=== PATIENT | male | born 1980 | race Caucasian/White ===

== ENCOUNTER 2016-09-11 15:43 | Emergency (ER) | payer OTHER ==
[2016-09-11 16:08] VITALS: BP 140/86
--- NOTE | 2016-09-11 16:41 | UC ---
Upper Extremity HPI - HPI Summary HPI Summary: 36 YEAR OLD MALE WITH COMPLAINTS OF 2 WEEKS OF LEFT SHOULDER PAIN FOLLOWING A FALL ONTO AN ICY SIDEWALK. THE LEFT SHOULDER HAS BEEN PAINFUL AND ACHING SINCE THAT TIME. HE IS LEFT HAND DOMINANT AND UNABLE TO SLEEP ON HIS LEFT SIDE DUE TO PAIN. WHILE TRYING TO PUSH HIMSELF OUT OF HIS CHAIR WITH HIS LEFT ELBOW HE HEARD A NOISE AND NOW IS HAVING MILD ELBOW PAIN - History of Current Complaint Chief Complaint: UCUpperExtremity Stated Complaint: SHOULDER PAIN Time Seen by Provider: 09/11/16 16:28 Hx Obtained From: Patient ?: No Onset/Duration: Sudden Onset, Lasting Weeks - 2, Still Present Severity Initially: Severe Severity Currently: Moderate Pain Scale Used: 0-10 Numeric - 7 - TEMPORARY RELIEF WITH TRAMADOL Character: Aching Aggravating Factor(s): Movement, Extension Alleviating Factor(s): Other: - TRAMADOL Associated Signs And Symptoms: Negative: Swelling, Redness, Bruising, Fever, Weakness, Numbness/Tingling Related History: Dominant Hand Left - Risk Factors Non-Orthopedic Risk Factor: Negative DVT Risk Factors: Smoking Septic Arthritis Risk Factor: Negative Compartment Syndrome Risk Factors: Pain - Allergies/Home Medications Allergies/Adverse Reactions: Allergies Allergy/AdvReac Type Severity Reaction Status Date / Time BEES Allergy Rash Uncoded 09/11/16 16:08 Home Medications: Home Medications NK [No Home Medications Reported] 09/11/16 [History Confirmed 09/11/16] PMH/Surg Hx/FS Hx/Imm Hx Previously Healthy: Yes Endocrine History Of: Denies: Diabetes, Thyroid Disease Cardiovascular History Of: Denies: Cardiac Disorders, Hypertension, Pacemaker/ICD Respiratory History Of: Reports: Asthma Denies: COPD GI/ History Of: Denies: Ulcer - Surgical History Surgical History: Yes Surgery Procedure, Year, and Place: TONSILLECTOMY. CHOLECYSTECTOMY - Family History Known Family History: Positive: Cardiac Disease - FATHER, Hypertension, Diabetes - Social History Lives: With Family Alcohol Use: None Substance Use Type: None Smoking Status (MU): Current Every Day Smoker Type: Cigarettes Amount Used/How Often: 5 CIG/DAY Length of Time of Smoking/Using Tobacco: 2002 Have You Smoked in the Last Year: Yes Household Exposure Type: Cigarettes Cessation Counseling: Patient Advised to Stop - HE IS NOT INTERESTED IN QUITING Review of Systems Constitutional: Negative Skin: Negative Eyes: Negative ENT: Negative Respiratory: Negative Cardiovascular: Negative Gastrointestinal: Negative Genitourinary: Negative Motor: Decreased ROM - LEFT SHOULDER Musculoskeletal: Arthralgia - LEFT SHOULDER AND ELBOW Neurological: Negative Psychological: Negative All Other Systems Reviewed And Are Negative: Yes Physical Exam Triage Information Reviewed: Yes Appearance: Well-Appearing, Pain Distress - HOLDING LEFT ARM WITH HIS RIGHT ARM , Obese - MORBIDLY Vital Signs: Initial Vital Signs Temp 98.1 F 09/11/16 16:05 Pulse 89 09/11/16 16:05 Resp 18 09/11/16 16:05 BP 140/86 09/11/16 16:05 Pulse Ox 99 09/11/16 16:05 Vital Signs Reviewed: Yes Eyes: Positive: Conjunctiva Clear. Negative: Discharge ENT: Positive: Hearing grossly normal. 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 FULL ROM OF LEFT WRIST AND ELBOW. NO ERYTHEMA, SWELLING OR BRUISING NOTED AT LEFT ELBOW OR SHOULDER. LEFT UPPER EXTREMITY PINK AND WARM WITH GOOD RADIAL AND ULNAR PULSES. GOOD SENSATION TO LIGHT TOUCH, No Edema Neurological: Positive: Alert, Muscle Tone Normal Psychological: Positive: Age Appropriate Behavior - PLEASANT AND COOPERATIVE Skin: Negative: rashes Upper Extremity Course/Dx - Course Course Of Treatment: XRAY OF LEFT SHOULDER - NEGATIVE. PT DECLINED TORADOL FOR PAIN. FOLLOW UP WITH PRIMARY CARE DOCTOR - Differential Dx/Diagnosis Differential Diagnosis/HQI/PQRI: Contusion, Fracture (Closed) Provider Diagnoses: LEFT SHOULDER SPRAIN Discharge - Discharge Plan Condition: Stable Disposition: HOME Patient Education Materials: Shoulder Pain (ED), Ice Pack Application (ED) Referrals: Zoë Newton MD [Primary Care Provider] - 1 Week
--- NOTE | 2016-09-11 17:08 | RAD ---
Indication: Left shoulder pain. 3 views of left shoulder demonstrates no fracture. No other bone or joint abnormality is noted. IMPRESSION: No fracture of the left shoulder is noted.
== END 2016-09-11 17:05 | disposition home or self-care (01) ==
LOC: UCEAST 15:43
DX: S43.402A Unspecified sprain of left shoulder joint, initial encounter (principal); W00.0XXA Fall on same level due to ice and snow, initial encounter; Y93.9 Activity, unspecified; Y92.480 Sidewalk as the place of occurrence of the external cause; M25.522 Pain in left elbow; F17.210 Nicotine dependence, cigarettes, uncomplicated
CPT/HCPCS: 99212; G0463

== ENCOUNTER 2017-05-11 17:49 | Emergency (ER) | payer OTHER ==
[2017-05-11 18:08] VITALS: BP 135/77
--- NOTE | 2017-05-11 18:21 | UC ---
Skin Complaint HPI - HPI Summary HPI Summary: Pt presents with c/o sudden oset of red cicular non pruritic dry scaly circles on right lateral lower leg. Pt has known history of eczema. - History of Current Complaint Chief Complaint: UCSkin Time Seen by Provider: 05/11/17 18:08 Stated Complaint: RIGHT LEG SKIN COMPLAINT Hx Obtained From: Patient Onset/Duration: Sudden Onset Skin Exposure Onset/Duration: Hours Ago Timing: Constant Onset Severity: Mild Current Severity: Mild Location: Discrete - right lowr leg lateral aspect Character: Redness Aggravating: Nothing Alleviating: Unknown Associated Signs & Symptoms: Positive: Rash - Allergy/Home Medications Allergies/Adverse Reactions: Allergies Allergy/AdvReac Type Severity Reaction Status Date / Time Morphine Allergy Severe "it will Verified 05/11/17 18:09 kill me" Mupirocin [From Bactroban] Allergy Mild local skin Verified 05/11/17 18:09 reaction BEES Allergy Rash Uncoded 05/11/17 18:09 Review of Systems Constitutional: Negative Skin: Rash Eyes: Negative ENT: Negative Respiratory: Negative Cardiovascular: Negative Gastrointestinal: Negative Genitourinary: Negative Motor: Negative Neurovascular: Negative Musculoskeletal: Negative Neurological: Negative Psychological: Negative Is Patient Immunocompromised?: No All Other Systems Reviewed And Are Negative: Yes PMH/Surg Hx/FS Hx/Imm Hx Previously Healthy: Yes - Surgical History Surgical History: Yes Surgery Procedure, Year, and Place: TONSILS. GALLBLADDER - Family History Known Family History: Positive: Cardiac Disease - FATHER, Hypertension, Diabetes - Social History Lives: With Family Alcohol Use: None Substance Use Type: None Smoking Status (MU): Light Every Day Tobacco Smoker Type: Cigarettes Amount Used/How Often: 5 CIG/DAY Length of Time of Smoking/Using Tobacco: 2002 Have You Smoked in the Last Year: Yes Household Exposure Type: Cigarettes Physical Exam Triage Information Reviewed: Yes Appearance: Well-Appearing, Obese Vital Signs: Initial Vital Signs Temp 98.3 F 05/11/17 18:03 Pulse 99 05/11/17 18:03 Resp 19 05/11/17 18:03 BP 135/77 05/11/17 18:03 Pulse Ox 99 05/11/17 18:03 Vital Signs Reviewed: Yes Eye Exam: Normal ENT Exam: Normal Neck exam: Normal Respiratory Exam: Normal Cardiovascular Exam: Normal Musculoskeletal Exam: Normal Neurological Exam: Normal Psychological Exam: Normal Skin Exam: Other - right lateral lower leg erythematous, circular areas, blanchable, dry skin, multiple areas, ~ 6 + Course/Dx - Course Course Of Treatment: I discussed with the pt the need to follow up with his PCP or return to clinic as needed. I offered referral to chief recordist. - Differential Diagnoses - Skin Complaint Differential Diagnoses: Cellulitis, Eczema, Other - psoriasis - Diagnoses Provider Diagnoses: eczema right lower lateral leg Discharge - Discharge Plan Condition: Stable Disposition: HOME Prescriptions: Hydrocortisone 1% CREAM* [Hytone Cream 1%*] 1 applic TOPICAL Q8H #1 tube Patient Education Materials: Eczema (ED) Referrals: Zoë Newton MD [Primary Care Provider] - If Needed (Please follow up with your PCP or return to clinic as needed.WE have provided a referral to a chief recordist foryou to use as needed. ) Cori Keller [Medical Doctor] -
== END 2017-05-11 18:37 | disposition home or self-care (01) ==
LOC: UCCORT 17:49
DX: L30.9 Dermatitis, unspecified (principal); E66.9 Obesity, unspecified; Z90.49 Acquired absence of other specified parts of digestive tract; Z88.5 Allergy status to narcotic agent; Z91.030 Bee allergy status; F17.210 Nicotine dependence, cigarettes, uncomplicated
CPT/HCPCS: 99212; G0463

== ENCOUNTER 2017-08-21 16:44 | Emergency (ER) | payer OTHER ==
[2017-08-21 17:05] VITALS: BP 134/84
--- OUTSIDE RECORDS SUMMARY | 2017-08-21 17:05 | XMS REPORT ---
:1980 External Reference #:[id number] Author Organization [facility], Address [address] [place] [address] Phone [phone] Care Team Providers Name Role Phone Gigi Evans DO Primary Care Physician Unavailable Payers Type Date Identification Numbers Payment Provider Subscriber Commercial Policy Number: [id number] [place] Managed Medicaid Marcelo Evans PayID: [id number] [address] [place] [address] Problems Description No Information Social History Type Date Description Comments Occupation Disabled ETOH Use Denies alcohol use Smoking Patient is a current smoker, smokes every day Allergies, Adverse Reactions, Alerts Date Description Reaction Status Severity Comments 05/29/2017 Morphine active 04/01/2017 NKDA inactive Medications Medication Date Status Form Strength Qnty SIG Indications Ordering Provider Cyclobenzaprine 07/29/ Active Tablets 10mg 60tabs take one M54.5 Gigi HCL 2017 tablet Cristina, every 8 DO hours as needed for back pain. Triamcinolone 05/29/ Active Cream 0.1% 30gm apply to L30.9 Gigi Acetonide 2017 affected [facility], area twice DO a day as needed Naproxen 04/23/ Active Tablets 500mg 60tabs take one S80.02xA Gigi 2017 tablet by Cristina, mouth DO twice a day with food as needed. Keflex 05/29/ Hx Capsules 500mg 40caps take one L30.9 Gigi 2017 - tablet Cristina, 06/09/ every 6 DO 2017 hours for 10 days. No Active 04/01/ Hx Unknown Medications 2016 - 2016 Vital Signs Date Vital Result Comment 08/01/2017 Weight 360.00 lb Weight in kg's 163.296 BMI (Body Mass Index) 56.4 kg/m2 BP Systolic 138 mmHg BP Diastolic 86 mmHg Respiratory Rate 18 /min Height 67 inches 5'7" Height in cm's 170.2 cm 07/29/2017 Weight 360.25 lb Weight in kg's 163.409 BMI (Body Mass Index) 56.4 kg/m2 BP Systolic 136 mmHg BP Diastolic 76 mmHg Heart Rate 84 /min Respiratory Rate 18 /min Height 67 inches 5'7" Height in cm's 170.2 cm O2 % BldC Oximetry 96 % 06/10/2017 Weight 366.00 lb Weight in kg's 166.018 BMI (Body Mass Index) 57.3 kg/m2 BP Systolic 134 mmHg BP Diastolic 78 mmHg Heart Rate 90 /min Respiratory Rate 26 /min Height 67 inches 5'7" Height in cm's 170.2 cm O2 % BldC Oximetry 98 % 05/29/2017 Weight 365.00 lb Weight in kg's 165.564 BMI (Body Mass Index) 57.2 kg/m2 BP Systolic 140 mmHg BP Diastolic 86 mmHg Heart Rate 87 /min Respiratory Rate 30 /min Height 67 inches 5'7" Height in cm's 170.2 cm O2 % BldC Oximetry 97 % 05/13/2017 Weight 364.00 lb Weight in kg's 165.110 BMI (Body Mass Index) 57.0 kg/m2 BP Systolic 132 mmHg BP Diastolic 88 mmHg Heart Rate 81 /min Respiratory Rate 17 /min Height 67 inches 5'7" Height in cm's 170.2 cm O2 % BldC Oximetry 99 % 04/23/2017 Weight 364.12 lb Weight in kg's 165.167 BMI (Body Mass Index) 57.0 kg/m2 BP Systolic 136 mmHg BP Diastolic 84 mmHg Heart Rate 77 /min Respiratory Rate 18 /min Height 67 inches 5'7" Height in cm's 170.2 cm O2 % BldC Oximetry 97 % 04/16/2017 Weight 362.12 lb Weight in kg's 164.260 BMI (Body Mass Index) 56.7 kg/m2 BP Systolic 130 mmHg BP Diastolic 84 mmHg Heart Rate 71 /min Respiratory Rate 18 /min Height 67 inches 5'7" Height in cm's 170.2 cm O2 % BldC Oximetry 99 % 04/01/2017 Weight 363.25 lb Weight in kg's 164.770 BMI (Body Mass Index) 56.9 kg/m2 BP Systolic 136 mmHg BP Diastolic 90 mmHg Heart Rate 78 /min Respiratory Rate 18 /min Height 67 inches 5'7" Height in cm's 170.2 cm O2 % BldC Oximetry 98 % Results Test Date Test Result H/L Range Note Comprehensive Panel 04/04/2017 Sodium 137 mmol/L 136-145 Potassium 4.2 mmol/L 3.5-5.2 Chloride 105 mmol/L 100-108 Co2 24 mmol/L 21-32 Glucose 88 mg/dL 70-100 BUN 8 mg/dL 7-21 Creatinine 0.8 mg/dL 0.6-1.3 1 Calcium 9.1 mg/dL 8.5-10.8 GFR >60 T Bili 0.8 mg/dL 0.0-1.2 T Protein 7.7 gm/dL 6.4-8.2 Albumin 3.9 gm/dL 3.4-4.8 Alk Phos 139 U/L 40-150 Alt (SGPT) 24 U/L 0-55 Ast (Sgot) 20 U/L 5-37 CBC W/No Diff 04/04/2017 WBC 7.1 K/uL 4.8-10.8 RBC 5.21 M/uL 4.60-6.20 Hemoglobin 15.4 gm/dL 13.5-18.0 Hematocrit 44.0 % 41.0-53.0 MCV 84.5 fL 80.0-100.0 MCHC 35.0 % 30.0-36.5 MCH 29.5 pg 27.0-34.0 RDW 13.3 % 11.0-15.0 Platelet 268 K/uL 130-450 MPV 8.0 fL 6.0-12.0 Thyroid Profile(T3+T4+TSH) 04/04/2017 TSH 1.84 uIU/mL 0.34-4.82 T4 4.2 g/dL Low 4.7-13.0 T3 Uptake Units 0.86 TBI 0.69-1.41 Lipid Panel 04/04/2017 Cholesterol 145 mg/dL 120-200 Triglycerides 82 mg/dL 0-149 HDL Cholesterol 32 mg/dL Low 40-60 Chol/HDL Ratio 4.5 <=4.9 2 LDL Direct 104 mg/dL High 0-99 VLDL Calculated 16 1 Normal Kidney Function or Mild Disease - GFR >OR=60 Chronic Kidney Disease - GFR 15-59 Renal Failure - GFR < 15 GFR not calculated on patients under 18 years of age. 2 Cholesterol/HDL Ratio Interpretation Risk : 1/2 Avg Avg 2x Avg 3x Avg Male : 3.43 4.97 9.50 23.99 Female : 3.27 4.44 7.05 11.04 Procedures Date CPT Code Description Status 06/30/2017 24296 Polysomnography; Sleep Staging 4 Or More Add'l Para Completed Attend [facility] Encounters Type Date Location Provider CPT E/M Dx Office Visit 08/01/2017 2:00p [facility] [place] [address] M54.5 M51.36 Office Visit 07/29/2017 10:30a [facility] [place] [address] M54.5 Office Visit 06/10/2017 2:15p [facility] [place] [address] E66.01 Z68.43 Office Visit 05/29/2017 10:30a [facility] [place] [address] L30.9 Office Visit 05/13/2017 9:00a [facility] [place] [address] M25.562 Z68.43 Office Visit 04/23/2017 1:15p [facility] [place] [address] M25.562 S80.02xA G47.33 Z68.43 Office Visit 04/16/2017 1:45p [facility] [place] [address] G56.02 Office Visit 04/01/2017 11:00a [facility] [place] [address] F33.1 Z68.43 Plan of Care Future Appointment(s):08/28/2017 10:00 am - Gigi Evans DO at [facility]08/01/2017 - WADE Correa54.5 Low back painM51.36 Other intervertebral disc degeneration, lumbar regionNew Xrays:MRI Spine Lumbar W/O ContrastComments:We will check an MRI of the lumbar spine for further assessment. He will likely need physical therapy, but I want to wait to see what the results of this is first.
--- OUTSIDE RECORDS SUMMARY | 2017-08-21 17:05 | XMS REPORT ---
:1980 External Reference #:[id number] Author Organization [facility], Address [address] [place] [address] Phone [phone] Care Team Providers Name Role Phone Gigi Evans DO Primary Care Physician Unavailable Payers Type Date Identification Numbers Payment Provider Subscriber Commercial Policy Number: [id number] [place] Managed Medicaid Marcelo Evans PayID: [id number] [address] [place] [address] Problems Description No Information Social History Type [...] apply to L30.9 Gigi Acetonide 2017 affected [facility], area twice DO a day as needed Naproxen 04/23/ Active Tablets 500mg 60tabs take one S80.02xA Gigi 2017 tablet by Cristina, mouth DO twice a day with food as needed. Keflex 05/29/ Hx Capsules 500mg 40caps take one L30.9 Gigi 2017 - tablet Cristina, 06/09/ every 6 DO 2017 hours for 10 days. No Active Hx Unknown Medications 2016 - 2016 Vital Signs Date Vital Result Comment 07/29/2017 Weight 360.25 lb Weight in kg's [...] Procedures Date CPT Code Description Status 06/30/2017 45927 Polysomnography; Sleep Staging 4 Or More Add'l Para Completed Attend [facility] Encounters Type Date Location Provider CPT E/M Dx Office Visit 07/29/2017 10:30a [facility] [place] [address] M54.5 Office Visit 06/10/2017 2:15p [facility] [place] [address] E66.01 Z68.43 Office Visit 05/29/2017 10:30a [facility] [place] [address] L30.9 Office Visit 05/13/2017 9:00a [facility] [place] [address] M25.562 Z68.43 Office Visit 04/23/2017 1:15p [facility] [place] [address] M25.562 S80.02xA G47.33 Z68.43 Office Visit 04/16/2017 1:45p [facility] [place] [address] G56.02 Office Visit 04/01/2017 11:00a [facility] [place] [address] F33.1 Z68.43 Plan of Care Future Appointment(s):08/28/2017 10:00 am - Gigi Evans DO at [facility]07/29/2017 - Gigi Evans DOM54.5 Low back painNew Medication: Cyclobenzaprine HCL 10 mgNew Xrays:Spine, Lumbosacral, 2 Or 3 ViewsFollow up:4 weeks
--- NOTE | 2017-08-21 17:06 | UC ---
Upper Extremity HPI - HPI Summary HPI Summary: 37 YEAR OLD MALE PRESENTS WITH COMPLAINS OF RIGHT SHOULDER PAIN WITH NO TRAUMA. - History of Current Complaint Chief Complaint: UCUpperExtremity Stated Complaint: RT SHOULDER Time Seen by Provider: 08/21/17 17:06 Hx Obtained From: Patient Onset/Duration: Sudden Onset Severity Initially: Moderate Severity Currently: Moderate Pain Scale Used: 0-10 Numeric - 5 Character: Sharp Aggravating Factor(s): Movement - Allergies/Home Medications Allergies/Adverse Reactions: Allergies Allergy/AdvReac Type Severity Reaction Status Date / Time Morphine Allergy Severe "it will Verified 08/21/17 17:04 kill me" Mupirocin [From Bactroban] Allergy Mild local skin Verified 08/21/17 17:04 reaction BEES Allergy Rash Uncoded 08/21/17 17:04 Home Medications: Home Medications Cyclobenzaprine TAB* [Flexeril 10 MG TAB*] 10 mg PO BID 08/21/17 [History Confirmed 08/21/17] PMH/Surg Hx/FS Hx/Imm Hx Previously Healthy: Yes - Surgical History Surgical History: Yes Surgery Procedure, Year, and Place: TONSILS. GALLBLADDER - Family History Known Family History: Positive: Cardiac Disease - FATHER, Hypertension, Diabetes - Social History Alcohol Use: None Substance Use Type: None Smoking Status (MU): Light Every Day Tobacco Smoker Type: Cigarettes Amount Used/How Often: 5 CIG/DAY Length of Time of Smoking/Using Tobacco: 2003 Have You Smoked in the Last Year: Yes Household Exposure Type: Cigarettes Review of Systems Constitutional: Negative Skin: Negative Eyes: Negative ENT: Negative Respiratory: Negative Cardiovascular: Negative Gastrointestinal: Negative Genitourinary: Negative Motor: Negative Neurovascular: Negative Musculoskeletal: Decreased ROM, Myalgia Neurological: Negative Psychological: Negative All Other Systems Reviewed And Are Negative: Yes Physical Exam Triage Information Reviewed: Yes Vital Signs: Initial Vital Signs Temp 36.6 C 08/21/17 17:00 Pulse 88 08/21/17 17:00 Resp 18 08/21/17 17:00 BP 134/84 08/21/17 17:00 Pulse Ox 97 08/21/17 17:00 Vital Signs Reviewed: Yes Eye Exam: Normal ENT Exam: Normal Dental Exam: Normal Neck exam: Normal Neck: Positive: 1 Respiratory Exam: Normal Cardiovascular Exam: Normal Abdominal Exam: Normal Musculoskeletal: Positive: Other: - RIGHT SHOULDER PAIN Neurological Exam: Normal Psychological Exam: Normal Skin Exam: Normal Upper Extremity Course/Dx - Differential Dx/Diagnosis Provider Diagnoses: RIGHT SHOULDER PAIN/SPRAIN Discharge - Discharge Plan Condition: Stable Disposition: HOME Prescriptions: Ibuprofen TAB* [Motrin TAB* 800 MG] 800 mg PO Q6H #30 tab Methocarbamol TAB* [Robaxin 500 MG TAB*] 500 mg PO TID PRN #30 tab PRN Reason: Spasms Patient Education Materials: Shoulder Sprain (ED) Referrals: Gigi Evans DO [Primary Care Provider] - Joe Quintana MD [Medical Doctor] - Darrion Harris [Physical Therapist] -
--- NOTE | 2017-08-21 17:36 | RAD ---
INDICATION: Atraumatic right shoulder pain COMPARISON: Right shoulder March 29, 2014 TECHNIQUE: Routine frontal, Y and axial views were obtained. FINDINGS: The bony structures, joint spaces, and soft tissues are normal for age. IMPRESSION: NEGATIVE EXAMINATION.
== END 2017-08-21 17:55 | disposition home or self-care (01) ==
LOC: UCCORT 16:44
DX: S43.401A Unspecified sprain of right shoulder joint, initial encounter (principal); X58.XXXA Exposure to other specified factors, initial encounter; Y93.9 Activity, unspecified; Y92.9 Unspecified place or not applicable; Y99.9 Unspecified external cause status; Z72.0 Tobacco use
CPT/HCPCS: 99213; G0463

== ENCOUNTER 2017-11-22 13:05 | Emergency (ER) | payer OTHER ==
--- OUTSIDE RECORDS SUMMARY | 2017-11-22 13:14 | XMS REPORT | Continuity of Care Document ---
:[address] [facility] Care Team Providers Name Role Phone KARYN UMAÑA Admitting Physician KARYN UMAÑA Attending Physician LISA MILLER Primary Care Physician Hospital Admission Diagnosis Code Admission Diagnosis Date [id number] Examination for accident Social History Element Code Description Smoking Start Date End Date Description Status Code System Smoking Status 791130755875257 Current some day SNOMED-CT smoker Problems Code Code System Problem Name Start Date End Date Status 83283750 SNOMED-CT Depressive disorder 03/25/2017 Active 912901284 SNOMED-CT Asthma Unknown Active 582111033 SNOMED-CT Gastroesophageal reflux disease Unknown Active Medications RxNorm Medication Dose Route Instructions Indications Start End Status Date Date Ventolin HFA 2 puff Inhalation inhaled every Active Inhaler 90 4 hours as mcg/actuation needed. 434784 Naproxen 500 500 oral orally every No MG Oral Tablet milligram 12 hours (10 Longer days) Active (administer with food or milk) 1875790 Triamcinolone 1 Topical topically 3 05/30/ No Acetonide 1 applicatio times per day 2017 Longer MG/ML Topical n (7 days) Active Cream Allergies Code Code Allergy Type Reaction Severity Start End Date Status System Substance Date 652194 RXNorm Bee Pollen Drug Unknown Active allergy 7052 RXNorm Morphine Drug Rash Unknown Active allergy RXNorm No Known Drug Drug Unknown 10/09/19 Inactive Allergies allergy 6 18 Results Radiology Results Order: [id number] HIP ONLY UNILATERAL 2-3 VIEWS LEFTExam Completion Date:10/09/2017 18:4710/09/2017 6:57 PM HIP ONLY UNILATERAL 2 -3 VIEWS LEFTORDERING CLINICAL INFORMATION: -- HISTORY OF FALLING ADDITIONAL CLINICAL INFORMATION: None. COMPARISON: None. PROCEDURE: 2 views of the left hipare obtained. FINDINGS/IMPRESSION: No acute fracture or dislocation. The joint spaces are unremarkable. END REPORTElectronically signed By: Leland Saucedo M.D.Read By: LELAND CABRERAate: 10/09/201718:58 Vital Signs Vitals Value Date Body Temperature 97.8 F 10/09/2017 Pulse Rate 98 (beats)/min 10/09/2017 Respiratory Rate 18 (breaths)/min 10/09/2017 O2% BldC Oximetry 99 % 10/09/2017 BP Systolic 147 mmHg 10/09/2017 BP Diastolic 94 mmHg 10/09/2017 Height 67 in 10/09/2017 Weight Measured 348.33 lbs 10/09/2017 BSA (Body Surface Area) 2.50156 m2 10/09/2017 BMI (Body Mass Index) 54.6 kg/m2 10/09/2017 Advance Directives *RHIO - CONSENT IS YES Directive Type Effective Date [employer] Notes Supporting Document Name Address Phone No Directive Type 04/04/2017 08:56 Not Specified Not Specified Not Specified None No specified Family History Family History Unknown Plan of Care No data in the system Procedures No data in the system Encounters Date Code Diagnosis Status (ICD10) - [id number] CONTUSION LEFT HIP INITIAL ENC Active Immunizations No data in the system Functional Status No data in the system Hospital Discharge Instructions No data in the system
--- NOTE | 2017-11-22 13:20 | UC ---
Upper Extremity HPI - HPI Summary HPI Summary: Pt presents with left elbow pain for 1 week. He is left hand dominant. He tells me that he was shoveling snow last weekend and felt a "pop" in his left elbow. Has been painful since that time. Decreased ROM due to pain. Has been taking ibuprofen with little relief. Denies numbness or tingling. - History of Current Complaint Stated Complaint: LEFT ARM INJURY Time Seen by Provider: 11/22/17 13:19 Hx Obtained From: Patient Onset/Duration: Sudden Onset Severity Initially: Moderate Severity Currently: Moderate Pain Intensity: 7 Pain Scale Used: 0-10 Numeric Character: Sharp, Stiffness Aggravating Factor(s): Movement, Lifting - Allergies/Home Medications Allergies/Adverse Reactions: Allergies Allergy/AdvReac Type Severity Reaction Status Date / Time MS Morphine [Morphine] Allergy Severe "it will Verified 11/22/17 13:34 kill me" MS Mupirocin [From Bactroban] Allergy Mild local skin Verified 11/22/17 13:34 reaction BEES Allergy Rash Uncoded 08/21/17 17:04 Home Medications: Home Medications Ibuprofen TAB* [Motrin TAB* 800 MG] 800 mg PO Q6H 11/22/17 [History Confirmed ] PMH/Surg Hx/FS Hx/Imm Hx Previously Healthy: Yes - Surgical History Surgical History: Yes Surgery Procedure, Year, and Place: TONSILS. GALLBLADDER - Family History Known Family History: Positive: Cardiac Disease - FATHER, Hypertension, Diabetes - Social History Lives: With Family Alcohol Use: None Substance Use Type: None Smoking Status (MU): Light Every Day Tobacco Smoker Type: Cigarettes Amount Used/How Often: 5 CIG/DAY Length of Time of Smoking/Using Tobacco: 2002 Have You Smoked in the Last Year: Yes Household Exposure Type: Cigarettes Review of Systems Constitutional: Negative Skin: Negative Respiratory: Negative Cardiovascular: Negative Gastrointestinal: Negative Neurovascular: Negative Musculoskeletal: Decreased ROM - Left elbow, Other: - Left elbow pain Neurological: Negative Psychological: Negative All Other Systems Reviewed And Are Negative: Yes Physical Exam - Summary Physical Exam Summary: GENERAL: Obese. No pain distress. SKIN: No rashes, sores, ulcers, masses, lesions. NECK: Supple. Nontender. No lymphadenopathy. CHEST: CTAB. No r/r/w. No accessory muscle use. Breathing comfortably and in no distress. CV: RRR. Without m/r/g. Pulses intact radial and ulnar. MSK: Left elbow: TTP over lateral epicondyle. Able to supinate, but with pain. Middle finger extension against resistance causes pain in lateral epicondyle. No edema or obvious bony deformities. NEURO: Alert. Sensations intact hand and all fingers. PSYCH: Age appropriate behavior. Triage Information Reviewed: Yes Upper Extremity Course/Dx - Course Course Of Treatment: XR: IMPRESSION: NO ACUTE OSSEOUS INJURY. IF SYMPTOMS PERSIST, RECOMMEND REPEAT IMAGING. Suspect lateral epicondylitis. Advised rest , ice, and meloxicam. Use sling as needed. - Differential Dx/Diagnosis Provider Diagnoses: lateral epicondylitis left Discharge - Sign-Out/Discharge Documenting (check all that apply): Discharge - Discharge Plan Condition: Stable Disposition: HOME Prescriptions: Meloxicam 7.5 mg PO BID PRN #14 tab PRN Reason: Pain Patient Education Materials: Tennis Elbow (ED) Referrals: Gigi Evans DO [Primary Care Provider] - Additional Instructions: If you develop a fever, shortness of breath, chest pain, new or worsening symptoms - please call your PCP or go to the ED. Your blood pressure was high at todays visit. Please see your primary provider within 4 weeks for recheck and re-evaluation. - Billing Disposition and Condition Condition: STABLE Disposition: HOME
[2017-11-22 13:34] VITALS: BP 137/81
--- NOTE | 2017-11-22 13:49 | RAD ---
HISTORY: Left elbow pain COMPARISONS: None VIEWS: 4, Frontal, lateral, and oblique views of the left elbow FINDINGS: BONE DENSITY: Normal. BONES: There is no displaced fracture. JOINTS: There is no arthropathy. There is no posterior supracondylar fat pad to suggest a joint effusion. ALIGNMENT: There is no dislocation. SOFT TISSUES: Unremarkable. OTHER FINDINGS: None. IMPRESSION: NO ACUTE OSSEOUS INJURY. IF SYMPTOMS PERSIST, RECOMMEND REPEAT IMAGING.
== END 2017-11-22 14:08 | disposition home or self-care (01) ==
LOC: UCCORT 13:05
DX: M77.12 Lateral epicondylitis, left elbow (principal); X50.0XXA Overexertion from strenuous movement or load, initial encounter; Y93.H1 Activity, digging, shoveling and raking; Y92.008 Other place in unspecified non-institutional (private) residence as the place of occurrence of the external cause; Z88.5 Allergy status to narcotic agent; Z88.1 Allergy status to other antibiotic agents; Z91.030 Bee allergy status; F17.210 Nicotine dependence, cigarettes, uncomplicated
CPT/HCPCS: 99213; G0463

== ENCOUNTER 2018-02-09 15:27 | Emergency (ER) | payer OTHER ==
--- OUTSIDE RECORDS SUMMARY | 2018-02-09 15:51 | XMS REPORT | Continuity of Care Document ---
:1980 Author Organization [facility] Care Team Providers Name Role Phone LISA MILLER Admitting Physician LISA MILLER Attending Physician LISA MILLER Primary Care Physician Allergies and Intolerances Code Code System Allergy Type Reaction Severity Start End Date Status Substance Date 7052 RXNorm Morphine Drug Rash Unknown Active allergy (disorder) 499214 RXNorm Bee Pollen Drug Unknown Active allergy (disorder) Medications RxNorm Medication Dose Route Instructions Start Date End Date Status Ventolin HFA 2 puff Inhalation inhaled every 4 Active Inhaler 90 hours as needed. mcg/actuation Problems Code Code System Problem Name Start Date End Date Status 16082048 SNOMED-CT Depressive disorder 03/25/2017 Active 801693622 SNOMED-CT Gastroesophageal reflux disease U Active 255961996 SNOMED-CT Asthma U Active Procedures No data in the system Results Radiology Results Order: MRI LUMBAR W/O CONTRASTExam Completion Date:01/01/2018 08: 8:59 AM MR LUMBOSACRAL SPINE WITHOUT CONTRAST ORDERING CLINICAL INFORMATION: other intervertebral disc degeneration, lumbar region, -- OTHER INTERVERTEBRAL DISC DEGENERATION, LUMBAR REGION ADDITIONAL CLINICAL INFORMATION: None. TECHNIQUE: Multiplanar multi-sequenceMR imaging of the lumbosacral spine was performed without intravenous contrast. COMPARISON: Lumbar spine plain films from 07/29/2017. FINDINGS: Five lumbar vertebral segments are designated. Lumbar lordosis is present. The vertebral bodies are normal in height. The vertebrae are normal in alignment. Age-appropriate fatty marrow changes are observed. The conus medullaris is normal in morphology and terminates at L1. Loss of normal signal intensity and height noted at the L3/L4 , L4/L5 and L5/S1 intervertebral discs. Schmorl's nodule is noted within the inferior endplate of L3. Individuallevels: T12-L1: No disc herniation, spinal stenosis or foraminal narrowing. L1-L2: No disc herniation, spinal stenosis or foraminal narrowing. L2-L3: No disc herniation, spinal stenosis or foraminal narrowing. L3-L4: Diffuse disc bulge noted with no significant neuroforaminal narrowing. No spinal canal narrowing. L4-L5: Diffuse disc bulge noted with bilateral moderate lateral recess and neuroforaminal narrowing. No spinal canal narrowing. L5-S1: No disc herniation, spinal stenosis or foraminal narrowing. OTHER: None IMPRESSION: Discogenic degeneration noted within the lower lumbar intervertebral discs. An associated diffuse disc bulge and bilateral moderate lateral recess/neural foraminal narrowing noted at L4/L5. END OF REPORT Electronically signed By: Tara Preston Read By: TARA FRANCO Date: 01/01/2018 12:12 Social History Code Code System Social History Description Dates Observed Observation 663726268925654 SNOMED CT Current Smoking Current some day Status smoker UNK AdministrativeGender Sex Assigned At Unknown Vital Signs No data in the system Goals Section No data in the system Health Concerns No data in the systemEncounter Diagnosis Date Code Code System Diagnosis Status M51.36 ICD10 OTH IV DISC DEGEN LUMBAR REGION Active Advance Directives *RHIO - CONSENT IS YES Directive Type Effective Date Quality Assurance Coordinator Notes Supporting Document Name Address Phone No Directive Type 04/04/2017 8:56:05 Not Specified Not Specified Not Specified None No specified AM Family History Family History Unknown Functional Status No data in the system Immunizations No data in the system Medical Equipment No data in the system Mental Status No data in the system Assessment and Plan Assessments No data in the systemPlan Of Treatment No data in the systemPending Tests No data in the system Hospital Discharge Instructions No data in the system Reason for Visit Reason for Visit MRI VERIFY INFO
[2018-02-09 16:02] VITALS: BP 126/75
--- NOTE | 2018-02-09 16:15 | UC ---
Knee Pain HPI - HPI Summary HPI Summary: Pt c/o left knee pain that began this morning. Pt denies injury or previous surgery to knee. - History of Current Complaint Chief Complaint: UCLowerExtremity Stated Complaint: LEFT KNEE PAIN Time Seen by Provider: 02/09/18 15:49 Hx Obtained From: Patient Onset/Duration: Sudden Onset, Lasting Hours Severity Initially: Mild Severity Currently: Moderate Pain Intensity: 7 Character: Dull, Aching, Stiffness Aggravating Factor(s): Movement, Weight Bearing, Prolonged Standing Alleviating Factor(s): Rest, Position Associated Signs And Symptoms: Positive: Negative Able to Bear Weight: Yes - Risk Factors Septic Arthritis Risk Factor: Negative Gout Risk Factor: Male, Obesity - Allergies/Home Medications Allergies/Adverse Reactions: Allergies Allergy/AdvReac Type Severity Reaction Status Date / Time mupirocin [From Bactroban] Allergy Rash Verified 02/09/18 16:03 BEES Allergy Rash Uncoded 08/21/17 17:04 PMH/Surg Hx/FS Hx/Imm Hx Previously Healthy: Yes - Surgical History Surgical History: Yes Surgery Procedure, Year, and Place: TONSILS. GALLBLADDER - Family History Known Family History: Positive: Cardiac Disease - FATHER, Hypertension, Diabetes - Social History Lives: With Family Alcohol Use: None Substance Use Type: None Smoking Status (MU): Light Every Day Tobacco Smoker Type: Cigarettes Amount Used/How Often: 5 CIG/DAY Length of Time of Smoking/Using Tobacco: 2003 Have You Smoked in the Last Year: Yes Household Exposure Type: Cigarettes Review of Systems Constitutional: Negative Skin: Negative Eyes: Negative ENT: Negative Respiratory: Negative Cardiovascular: Negative Gastrointestinal: Negative Genitourinary: Negative Motor: Negative Neurovascular: Negative Musculoskeletal: Arthralgia, Myalgia Neurological: Negative Psychological: Negative Is Patient Immunocompromised?: No All Other Systems Reviewed And Are Negative: Yes Physical Exam Triage Information Reviewed: Yes Appearance: Obese Vital Signs: Initial Vital Signs Temp 98.4 F 02/09/18 15:54 Pulse 94 02/09/18 15:54 Resp 16 02/09/18 15:54 BP 126/75 02/09/18 15:54 Pulse Ox 99 02/09/18 15:54 Vital Signs Reviewed: Yes Eye Exam: Normal ENT Exam: Normal Dental Exam: Normal Neck exam: Normal Respiratory: Positive: No respiratory distress Musculoskeletal: Positive: Strength Intact, ROM Intact, No Edema, Other: - c/o tenderness left lateral posterior knee, no swelling, erythema or red streaking Neurological Exam: Normal Psychological Exam: Normal Skin Exam: Normal Knee Pain Course/Dx - Differential Dx/Diagnosis Differential Diagnosis/HQI/PQRI: DVT, Sprain, Strain Provider Diagnoses: left knee strain Discharge - Sign-Out/Discharge Documenting (check all that apply): Discharge/Admit/Transfer - Discharge Plan Condition: Stable Disposition: HOME Patient Education Materials: Knee Pain (ED), Arthralgia (ED), R.I.C.E. Treatment (ED) Referrals: Gigi Evans DO [Primary Care Provider] - If Needed - Billing Disposition and Condition Condition: STABLE Disposition: Home
== END 2018-02-09 16:25 | disposition home or self-care (01) ==
LOC: UCCORT 15:27
DX: S86.812A Strain of other muscle(s) and tendon(s) at lower leg level, left leg, initial encounter (principal); E66.9 Obesity, unspecified; F17.210 Nicotine dependence, cigarettes, uncomplicated; X58.XXXA Exposure to other specified factors, initial encounter; Y92.9 Unspecified place or not applicable; Z91.030 Bee allergy status; Z88.1 Allergy status to other antibiotic agents
CPT/HCPCS: 99211; G0463

== ENCOUNTER 2018-03-17 20:30 | Emergency (ER) | payer OTHER ==
--- OUTSIDE RECORDS SUMMARY | 2018-03-17 20:42 | XMS REPORT ---
:1980 External Reference #:[id number] Author Organization [facility] Address [address], [address] [place] [address] Phone [phone] Care Team Providers Name Role Phone Gigi Evans DO Care Team Information Wide Load Escort Unavailable Gigi Evans DO Primary Care Physician Unavailable Payers Type Date Identification Numbers Payment Provider Subscriber Commercial Policy Number: [id number] [place] [employer] Marcelo Evans PayID: [id number] [address] [place] [address] Problems Description No Information Social History Type Date Description Comments Lives With Mother Occupation Disabled Work Status Disabled Cigarette Use current cigarette smoker ETOH Use Denies alcohol use Recreational Drug Use Denies Drug Use Daily Caffeine Current Caffeine User Allergies, Adverse Reactions, Alerts Date Description Reaction Status Severity Comments 02/19/2018 NKDA active Medications Medication Date Status Form Strength Qnty SIG Indications Ordering Provider Diclofenac Active Tablets ER 100mg 30tabs 1 by mouth Zander Sodium ER 018 24HR every day [place], with food. M.D. Stop ibuprofen and meloxicam Sertraline Active Tablets 50mg Take One Unknown HCL 000 Tablet By Mouth Every Day Ibuprofen Hx Tablets 600mg Take One Unknown 000 - Tablet By Mouth Three 018 Times A Day as Needed For Pain Meloxicam Hx Tablets 7.5mg Take One Unknown 000 - Tablet By Mouth Twice 018 A Day as Needed For Pain Vital Signs Date Vital Result Comment 02/19/2018 BP Systolic Sitting Left Arm 129 mmHg BP Diastolic Sitting Left Arm 84 mmHg Body Temperature 97.5 F Heart Rate 85 /min Respiratory Rate 18 /min Height 66 inches 5'6" Weight 317.00 lb BMI (Body Mass Index) 51.2 kg/m2 BSA (Body Surface Area) 2.43 m2 [place] body weight in kilograms 64 O2 % BldC Oximetry 95 % Results Description No Information Procedures Date CPT Code Description Status 12/24/2014 39383 EKG Interpretation And Report Only Completed 02/19/2011 08746 Stress Test Interpre And Report Only Completed 02/19/2011 75155 Stress Test Physician Super Only Completed Encounters Type Date Location Provider CPT E/M Dx Office Visit 02/19/2018 10:15a Orthopaedic Office Johana Gonzalez, [address] M25.562 [facility] M17.12 Office Visit 08/13/2012 2:05p Cardiology Office Moy Olson, [phone] M.Kang, [facility] Plan of Care Future Appointment(s):03/19/2018 9:30 am - JESSE Brantley at [facility] [place]8302/19/2018 - Johana Gonzalez, RPACM25.562 Pain in left kneeNew Therapy:Physical ZjuoqqvD82.12 Unilateral primary osteoarthritis, left kneeNew Therapy:Physical TherapyAllNew Medication:Diclofenac Sodium ER 100 mgComments:His pain is relatively mild and has been flared only for about a week. I suggested an oral anti-inflammatory. The ibuprofen and Meloxicam are not being utilized ideally. I am going to have him stop them. I faxed in a prescription for diclofenac 100 mg to be taken daily with food. I am going to have him take it regularly for the next month and see him back to see how effective it has been. I am also going to have him attend a formal physical therapy program to strengthen his knee. He can stop using the crutches and use ice as needed. He will contact the office sooner with any problems or concerns.
[2018-03-17 20:51] VITALS: BP 141/83
--- NOTE | 2018-03-17 21:07 | UC ---
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 he is c/o pain to the foot. - History of Current Complaint Chief Complaint: UCLowerExtremity Stated Complaint: LEFT FOOT INJURY Time Seen by Provider: 03/17/18 20:48 Hx Obtained From: Patient Onset/Duration: Sudden Onset Pain Intensity: 8 Aggravating Factor(s): Standing, Ambulation Able to Bear Weight: No - Allergies/Home Medications Allergies/Adverse Reactions: Allergies Allergy/AdvReac Type Severity Reaction Status Date / Time mupirocin [From Bactroban] Allergy Rash Verified 03/17/18 20:48 BEES Allergy Rash Uncoded 03/17/18 20:48 PMH/Surg Hx/FS Hx/Imm Hx Previously Healthy: Yes - Surgical History Surgical History: Yes Surgery Procedure, Year, and Place: TONSILS. GALLBLADDER - Family History Known Family History: Positive: Cardiac Disease - FATHER, Hypertension, Diabetes - Social History Occupation: Unemployed Alcohol Use: None Substance Use Type: None Smoking Status (MU): Light Every Day Tobacco Smoker Type: Cigarettes Amount Used/How Often: 5 CIG/DAY Length of Time of Smoking/Using Tobacco: 2002 Have You Smoked in the Last Year: Yes Household Exposure Type: Cigarettes - Immunization History Vaccination Up to Date: Yes Review of Systems Constitutional: Negative Skin: Negative Eyes: Negative ENT: Negative Respiratory: Negative Cardiovascular: Negative Gastrointestinal: Negative Genitourinary: Negative Motor: Negative Neurovascular: Negative Musculoskeletal: Other: - pain l foot Neurological: Negative Psychological: Negative Is Patient Immunocompromised?: No All Other Systems Reviewed And Are Negative: Yes Physical Exam Triage Information Reviewed: Yes Appearance: Well-Appearing, Obese Vital Signs: Initial Vital Signs Temp 98.2 F 03/17/18 20:49 Pulse 100 03/17/18 20:49 Resp 20 03/17/18 20:49 BP 141/83 03/17/18 20:49 Pulse Ox 98 03/17/18 20:49 Eyes: Positive: Conjunctiva Clear ENT: Positive: Normal ENT inspection Neck: Positive: Supple, Nontender Respiratory: Positive: Lungs clear, Normal breath sounds Cardiovascular: Positive: RRR, No Murmur Abdomen Description: Positive: Nontender, No Organomegaly, Soft Bowel Sounds: Positive: Present Musculoskeletal: Positive: Other: - LLE: hip, knee, ankle are atraumatic. L medial-dorsal foot with mild swelling. Tender to bases of 1st and 2nd toes. Gross s/v/m is intact. Neurological: Positive: Alert Psychological: Positive: Age Appropriate Behavior Skin Exam: Normal Diagnostics - Radiology No standard instances Radiology Interpretation Completed By: ED Physician - no fx on wet read Lower Extremity Course/Dx - Course Course Of Treatment: no fx/dislocation - Differential Dx/Diagnosis Provider Diagnoses: Contusion L foot Discharge - Sign-Out/Discharge Documenting (check all that apply): Patient Departure - Discharge Plan Condition: Stable Disposition: HOME Patient Education Materials: Foot Contusion (ED) Referrals: Gigi Evans DO [Primary Care Provider] - 5 Days Additional Instructions: splint and crutches until cleared. - Billing Disposition and Condition Condition: STABLE Disposition: Home
--- NOTE | 2018-03-18 08:03 | RAD ---
INDICATION: Left great toe pain after " kicked a tray" COMPARISON: Left foot radiograph dated May 16, 2015 TECHNIQUE: 3 views of the left foot were obtained. FINDINGS: The adequately corticated bones are properly aligned. Joint spaces appear maintained. No fracture, dislocation or focal bony abnormality is seen. IMPRESSION: NO RADIOGRAPHICALLY APPARENT FRACTURE OR DISLOCATION If the patient's symptoms persist, follow-up imaging is recommended.. R0 R0
== END 2018-03-17 21:50 | disposition home or self-care (01) ==
LOC: UCCORT 20:30
DX: S90.32XA Contusion of left foot, initial encounter (principal); W22.8XXA Striking against or struck by other objects, initial encounter; Y93.89 Activity, other specified; Y92.9 Unspecified place or not applicable; Z88.1 Allergy status to other antibiotic agents; F17.210 Nicotine dependence, cigarettes, uncomplicated
CPT/HCPCS: 99213; G0463

== ENCOUNTER 2018-04-17 16:11 | Emergency (ER) | payer OTHER ==
--- OUTSIDE RECORDS SUMMARY | 2018-04-17 16:21 | XMS REPORT | Continuity of Care Document ---
:1980 Author Organization [facility] Care Team Providers Name Role Phone LISA MILLER Primary Care Physician Allergies and Intolerances Code Code System Allergy Type Reaction Severity Start End Date Status Substance Date 7051 RXNorm Morphine Drug Rash Unknown Active allergy (disorder) 465209 RXNorm Bee Pollen Drug Unknown Active allergy (disorder) Medications RxNorm Medication Dose Route Instructions Start Date End Date Status Ventolin HFA 2 puff Inhalation inhaled every 4 Active Inhaler 90 hours as needed. mcg/actuation Problems Code Code System Problem Name Start Date End Date Status 65073575 SNOMED-CT Depressive disorder 03/25/2017 Active 336479817 SNOMED-CT Gastroesophageal reflux disease U Active 349761423 SNOMED-CT Asthma U Active Procedures No data in the system Results Radiology Results Order: FOOT COMPLETE LTExam Completion Date: 03/19/2018 21: 9:09 PM FOOT COMPLETE LT ORDERING CLINICAL INFORMATION: INJURY, UNSPECIFIED,pain inR great toe and medial aspect of L foot Kicked tray and then dropped stand on it. -- INJURY, UNSPECIFIED IMPRESSION/FINDINGS: Frontal, lateral, and oblique views. Small osseous fragment off the lateral base of the first distal phalanx compatible with fracture, age-indeterminate. Correlate with point tenderness. Otherwise no significant osseous or soft tissue abnormality. Electronically signed By: Morro Golden M.D., MBA, FACR Read By: MORRO GOLDEN Date: 03/19/2018 21:18 Social History Code Code System Social History Description Dates Observed Observation 941589190454179 SNOMED CT Current Smoking Current some day Status smoker UNK AdministrativeGender Sex Assigned At Unknown Vital Signs Code Code System Vitals Value Date 52935 LOINC Body Temperature 97.5 [degF] 03/19/2018 8865-8 LOINC Pulse Rate 88 {beats}/min 03/19/2018 9279-1 LOINC Respiratory Rate 21 /min 03/19/2018 15430-3 INC O2% BldC Oximetry 95 % 03/19/2018 8480-6 LOINC BP Systolic 148 mm[Hg] 03/19/2018 8462-4 LOINC BP Diastolic 91 mm[Hg] 03/19/2018 8302-2 LOINC Height 67 [in_i] 03/19/2018 43003-5 LOINC Weight 168 kg 03/19/2018 3140-1 LOINC Body surface area Derived from formula 2.63 m2 03/19/2018 12707-0 INC BMI (Body Mass Index) 58.1 kg/m2 03/19/2018 Goals Section No data in the system Health Concerns No data in the systemEncounter Diagnosis Date Code Code System Diagnosis Status S92.422A ICD10 DSPL FX DIST PHAL LT GT TOE INT LETTY Active Advance Directives *RHIO - CONSENT IS YES Directive Type Effective Date Transfer And Pumphouse Operator Notes Supporting Document Name Address Phone No Directive Type 04/04/2017 8:56:05 Not Specified Not Specified Not Specified None No specified AM Family History Family History Unknown Functional Status Code Functional Condition Code System Date Status Independent adls SNOMED CT 03/19/2018 Active Appears well nourished/hydrated SNOMED CT 03/19/2018 Active Immunizations No data in the system Medical Equipment No data in the system Mental Status Code Cognitive Condition Code System Date Status No acute distress SNOMED CT 03/19/2018 Active Oriented x [address] 03/19/[address] 03/19/2018 Active Assessment and Plan Assessments No data in the systemPlan Of Treatment No data in the systemPending Tests No data in the system Hospital Discharge Instructions No data in the system Reason for Visit Reason for Visit Foot Injury
--- OUTSIDE RECORDS SUMMARY | 2018-04-17 16:21 | XMS REPORT ---
:1980 External Reference #:[id number] Author Organization [facility], [place] [address] [place] [address] Phone [phone] Care Team Providers Name Role Phone Gigi Evans DO Primary Care Physician Unavailable Payers Type Date Identification Numbers Payment Provider Subscriber Commercial Policy Number: [id number] [place] [employer] Marcelo Evans PayID: [id number] [address] [place] [address] Problems Description No Information Social History Type Date Description Comments Occupation Disabled ETOH Use Denies alcohol use Smoking Patient is a current smoker, smokes every day Allergies, Adverse Reactions, Alerts Date Description Reaction Status Severity Comments 05/29/2017 Morphine active 03/27/2018 Bees active 04/01/2017 NKDA inactive Medications Medication Date Status Form Strength Qnty SIG Indications Ordering Provider Amoxicillin 03/27/ Active Capsules 500mg 30caps one J01.90 Gigi 2017 tablet by Cristina, mouth DO every 8 hours for 10 days. Ventolin HFA 09/05/ Active Aerosol 108(90Base 2units 2 puffs Giig 2017 ) mcg/Act every 4 Cristina, hours as DO needed for wheezing or asthma or if needed before exercise Cyclobenzaprine 07/29/ Active Tablets 10mg 60tabs take one M54.5 Gigi HCL 2017 tablet Cristina, every 8 DO hours as needed for back pain. Triamcinolone 05/29/ Active Cream 0.1% 30gm apply to L30.9 Gigi Acetonide 2017 affected Cristina, area DO twice a day as needed Naproxen 04/23/ Active Tablets 500mg 60tabs take one S80.02xA Gigi 2017 tablet by Cristina, mouth DO twice a day with food as needed. Keflex 05/29/ Hx Capsules 500mg 40caps take one L30.9 Gigi 2016 - tablet Cristina, 06/09/ every 6 DO 2017 hours for 10 days. No Active 04/01/ Hx Unknown Medications 2016 - 2016 Vital Signs Date Vital Result Comment 03/27/2018 Weight 370.12 lb Weight in kg's 167.889 BMI (Body Mass Index) 58.0 kg/m2 BP Systolic 122 mmHg BP Diastolic 86 mmHg Heart Rate 82 /min Body Temperature 98.1 F Respiratory Rate 18 /min Height 67 inches 5'7" Height in cm's 170.2 cm O2 % BldC Oximetry 97 % 01/23/2018 Weight 366.50 lb Weight in kg's 166.244 BMI (Body Mass Index) 57.4 kg/m2 BP Systolic 128 mmHg BP Diastolic 94 mmHg Heart Rate 78 /min Respiratory Rate 18 /min Height 67 inches 5'7" Height in cm's 170.2 cm O2 % BldC Oximetry 98 % 12/26/2017 Weight 368.25 lb Weight in kg's 167.038 BMI (Body Mass Index) 57.7 kg/m2 BP Systolic 134 mmHg BP Diastolic 88 mmHg Heart Rate 75 /min Respiratory Rate 18 /min Height 67 inches 5'7" Height in cm's 170.2 cm O2 % BldC Oximetry 97 % 11/24/2017 Weight 368.00 lb Weight in kg's 166.925 BMI (Body Mass Index) 57.6 kg/m2 BP Systolic 136 mmHg BP Diastolic 84 mmHg Heart Rate 98 /min Respiratory Rate 30 /min Height 67 inches 5'7" Height in cm's 170.2 cm O2 % BldC Oximetry 98 % 09/03/2017 Weight 360.00 lb Weight in kg's 163.296 BMI (Body Mass Index) 56.4 kg/m2 BP Systolic 134 mmHg BP Diastolic 84 mmHg Respiratory Rate 19 /min Height 67 inches 5'7" Height in cm's 170.2 cm 08/01/2017 Weight 360.00 lb Weight in kg's [...] 11.04 Procedures Date CPT Code Description Status 08/06/2017 34816 Polysomnography; Sleep Staging 4 Or More W/Cpap/Bipap Completed Attend Tech 06/30/2017 94651 Polysomnography; Sleep Staging 4 Or More Add'l Para Completed Attend Tech Encounters Type Date Location Provider CPT E/M Dx Office Visit 03/27/2018 9:15a [facility] [place] [address] J01.90 Office Visit 12/26/2017 10:00a [facility] [place] [address] M25.522 Office Visit 11/24/2017 11:15a [facility] [place] [address] M54.5 Office Visit 09/03/2017 1:45p [facility] [place] [address] G47.33 Z68.43 Office Visit 08/01/2017 2:00p [facility] [place] [address] M54.5 M51.36 Office Visit 07/29/2017 10:30a [facility] [place] [address] M54.5 Office Visit 06/10/2017 2:15p [facility] [place] [address] E66.01 Z68.43 Office Visit 05/29/2017 10:30a [facility] [place] [address] L30.9 Office Visit 05/13/2017 9:00a [facility] [place] [address] M25.562 Z68.43 Office Visit 04/23/2017 1:15p [facility] [place] [address] M25.562 S80.02xA G47.33 Z68.43 Office Visit 04/16/2017 1:45p [facility] [place] [address] G56.02 Office Visit 04/01/2017 11:00a [facility] [place] [address] F33.1 Z68.43 Plan of Care 03/27/2018 - Gigi Evans DOJ01.90 Acute sinusitis, unspecifiedNew Medication: Amoxicillin 500 mg
[2018-04-17 16:25] VITALS: BP 138/72
--- NOTE | 2018-04-17 16:44 | UC ---
Upper Extremity HPI - HPI Summary HPI Summary: Patient presents complaining of right mid bicep pain. Patient states yesterday he was lifting more than he should. Patient states he was pulling a seat out of the back of his van. Patient states progressively he's had discomfort with full extension and full flexion of his right bicep. Patient is left-hand dominant. Patient denies any weakness or paresthesias of his hand. 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 Patient states when he rests his arm pain resolves completely. Patient has not taken anything for pain. Patient without any edema. Patient without any color change. Patient without previous injury to same. Patient's medications reviewed this visit - History of Current Complaint Chief Complaint: UCUpperExtremity Stated Complaint: RT ARM INJURY Time Seen by Provider: 04/17/18 16:21 Hx Obtained From: Patient Onset/Duration: Gradual Onset Severity Currently: Moderate Pain Intensity: 8 Pain Scale Used: 0-10 Numeric - Allergies/Home Medications Allergies/Adverse Reactions: Allergies Allergy/AdvReac Type Severity Reaction Status Date / Time mupirocin [From Bactroban] Allergy Rash Verified 03/17/18 20:48 BEES Allergy Rash Uncoded 03/17/18 20:48 PMH/Surg Hx/FS Hx/Imm Hx Previously Healthy: Yes - Surgical History Surgical History: Yes Surgery Procedure, Year, and Place: TONSILS. GALLBLADDER - Family History Known Family History: Positive: Cardiac Disease - FATHER, Hypertension, Diabetes - Social History Occupation: Unemployed Lives: With Family Alcohol Use: None Substance Use Type: None Smoking Status (MU): Light Every Day Tobacco Smoker Type: Cigarettes Amount Used/How Often: 5 CIG/DAY Length of Time of Smoking/Using Tobacco: 2002 Have You Smoked in the Last Year: Yes Household Exposure Type: Cigarettes - Immunization History Vaccination Up to Date: Yes Review of Systems Constitutional: Negative Musculoskeletal: Other: - right arm All Other Systems Reviewed And Are Negative: Yes Physical Exam - Summary Physical Exam Summary: A+Ox3, no distress Eyes: Conjunctiva Clear, JULIET. EOM intact and full ENT: Hearing grossly normal TM x 2 clear, mmoist, uvula midline, no exudate, no erythema Neck: Positive: Supple Respiratory: Positive: No respiratory distress, No accessory muscle use + CTA throughout no w/r Cardiovascular: RRR nl s1, s2 no m/r CBT <2 sec 2+ radial, 2+ ulna abd soft + BS nt/nd no guarding, no distension Musculoskeletal Exam: No pain with palpation of shoulder, clavicle, wrist +flex /ext elbow, pronation/supination mild TTP mid bicep discomfort with direct palpation. Neurological: Positive: Alert, + sensation throughout +thumb up, a ok, finger spread, finger cross Psychological: Positive: Normal Response To Family Skin: Positive: no rash, no ecchymosis, no edema Triage Information Reviewed: Yes Vital Signs: Initial Vital Signs Temp 98 F 04/17/18 16:21 Pulse 90 04/17/18 16:21 Resp 20 04/17/18 16:21 BP 138/72 04/17/18 16:21 Pulse Ox 98 04/17/18 16:21 Upper Extremity Course/Dx - Course Course Of Treatment: Patient presents with right mid bicep discomfort after lifting something yesterday. Patient states pain started approximately 3 hours after the movement. Patient has not taken anything for pain. Patient's left hand dominant. Patient with good CSM. Patient with mild mid bicipital discomfort with direct palpation. Patient with full strength and range of motion. Offered patient ibuprofen here patient declined states he takes at home. Patient offers sling. Recommended take out of the sling and flex extend elbow as well as make small circles with shoulder. And an ice. Encourage movement as tolerated. Patient comfortable in agreement with plan. Return precautions discussed - Differential Dx/Diagnosis Provider Diagnoses: muscle strain Discharge - Sign-Out/Discharge Documenting (check all that apply): Patient Departure - Discharge Plan Condition: Stable Disposition: HOME Patient Education Materials: Muscle Strain (ED) Referrals: Gigi Evans, [Primary Care Provider] - Additional Instructions: -wear sling for comfort and support. relax your shoulder so the sling holds the weight of your shoulder - Take your arm outside of your sling and fully bend/stretching of elbow and makes small circles at your shoulder as demonstrated in the urgent car -apply ice (20 min at a time) every 2-3 hours for the next 2 days --Okay to alternate ibuprofen (Advil, Motrin) and Tylenol product every 3 hours for pain. Take with food. Do NOT take for more than 4-5 days. -Contact your doctor with questions or concerns - Billing Disposition and Condition Condition: STABLE Disposition: Home
== END 2018-04-17 16:49 | disposition home or self-care (01) ==
LOC: UCCORT 16:11
DX: S46.911A Strain of unspecified muscle, fascia and tendon at shoulder and upper arm level, right arm, initial encounter (principal); X50.9XXA Other and unspecified overexertion or strenuous movements or postures, initial encounter; Y92.9 Unspecified place or not applicable; F17.210 Nicotine dependence, cigarettes, uncomplicated; Z88.3 Allergy status to other anti-infective agents
CPT/HCPCS: 99212; G0463

== ENCOUNTER 2018-06-19 19:44 | Emergency (ER) | payer OTHER ==
[2018-06-19 20:22] VITALS: BP 137/83
--- NOTE | 2018-06-19 20:30 | ED ---
Lower Extremity - HPI Summary HPI Summary: 38 yr old with complaint of left knee pain. Onset yesterday when he hit the knee cap on the ball of his jeep. pain on knee cap. Hurts worse to bend. He has no other complaints. - History of Current Complaint Chief Complaint: UCLowerExtremity Stated Complaint: LEFT KNEE INJURY Time Seen by Provider: 06/19/18 20:11 Pain Intensity: 7 - Allergies/Home Medications Allergies/Adverse Reactions: Allergies Allergy/AdvReac Type Severity Reaction Status Date / Time mupirocin [From Bactroban] Allergy Rash Verified 06/19/18 20:23 BEES Allergy Rash Uncoded 03/17/18 20:48 PMH/Surg Hx/FS Hx/Imm Hx Endocrine/Hematology History: Denies: Hx Diabetes, Hx Thyroid Disease Cardiovascular History: Denies: Hx Hypertension, Hx Pacemaker/ICD Respiratory History: Reports: Hx Asthma Denies: Hx Chronic Obstructive Pulmonary Disease (COPD) GI History: Denies: Hx Ulcer History: Denies: Hx Renal Disease Sensory History: Denies: Hx Hearing Aid Psychiatric History: Reports: Hx Panic Disorder - ANXIETY - Surgical History Surgery Procedure, Year, and Place: TONSILS. GALLBLADDER Infectious Disease History: No Infectious Disease History: Denies: Hx Clostridium Difficile, Hx Hepatitis, Hx Human Immunodeficiency Virus (HIV), Hx of Known/Suspected MRSA, Hx Shingles, Hx Tuberculosis, Hx Known/ Suspected VRE, Hx Known/Suspected VRSA, History Other Infectious Disease, Traveled Outside the [place] in Last 30 Days - Family History Known Family History: Positive: Cardiac Disease - FATHER, Hypertension, Diabetes - Social History Alcohol Use: None Substance Use Type: Reports: None Smoking Status (MU): Light Every Day Tobacco Smoker Type: Cigarettes Amount Used/How Often: 5 CIG/DAY Length of Time of Smoking/Using Tobacco: 2002 Have You Smoked in the Last Year: Yes Review of Systems Constitutional: Negative Positive: Other - knee cap pain All Other Systems Reviewed And Are Negative: Yes Physical Exam Triage Information Reviewed: Yes Vital Signs On Initial Exam: Initial Vitals Temp Pulse Resp BP Pulse Ox 98.3 F 92 17 137/83 97 06/19/18 20:15 06/19/18 20:15 06/19/18 20:15 06/19/18 20:15 06/19/18 20:15 Vital Signs Reviewed: Yes Appearance: Positive: Well-Appearing, No Pain Distress Skin: Positive: Warm, Skin Color Reflects Adequate Perfusion Head/Face: Positive: Normal Head/Face Inspection Eyes: Positive: EOMI Neck: Positive: Nontender Respiratory/Lung Sounds: Positive: Clear to Auscultation, Breath Sounds Present Cardiovascular: Positive: Pulses are Symmetrical in both Upper and Lower Extremities Abdomen Description: Negative: Distended Musculoskeletal: Positive: Strength/ROM Intact, Other - tender over the left knee cap without deformity, and without effusion. He has no crepitance over the knee cap. No gross defomity. Neurological: Positive: Sensory/Motor Intact, Alert, Oriented to Person Place, Time, CN Intact II-III Psychiatric: Positive: Normal - Aleksandra Coma Scale Best Eye Response: 4 - Spontaneous Best Motor Response: 6 - Obeys Commands Best Verbal Response: 5 - Oriented Coma Scale Total: 15 Diagnostics - Vital Signs Vital Signs Temp Pulse Resp BP Pulse Ox 06/19/18 20:15 98.3 F 92 17 137/83 97 - Laboratory Lab Statement: Any lab studies that have been ordered have been reviewed, and results considered in the medical decision making process. - Radiology left knee Xray Interpretation: No Acute Changes Radiology Interpretation Completed By: ED Physician Lower Extremity Course/Dx - Course Course Of Treatment: 38 yr old with direct trauma to knee cap. - Diagnoses Provider Diagnoses: Contusion of knee, left Discharge - Sign-Out/Discharge Documenting (check all that apply): Patient Departure All imaging exams completed and their final reports reviewed: No - Discharge Plan Condition: Good Disposition: HOME Patient Education Materials: Knee Pain (ED), Hypertension (ED) Referrals: Gigi Evans DO [Primary Care Provider] - 2 Days - Billing Disposition and Condition Condition: GOOD Disposition: Home
--- NOTE | 2018-06-20 08:07 | RAD ---
HISTORY: pain patella after trauma COMPARISONS: None VIEWS: 4 , Frontal, lateral, axial, and oblique views of the left knee FINDINGS: BONE DENSITY: Normal. BONES: There is no displaced fracture. JOINTS: There is mild medial compartment joint space narrowing. There is no suprapatellar joint effusion or lipohemarthrosis. ALIGNMENT: There is no dislocation. SOFT TISSUES: Unremarkable. OTHER FINDINGS: None. IMPRESSION: NO ACUTE OSSEOUS INJURY. IF SYMPTOMS PERSIST, RECOMMEND REPEAT IMAGING. R1
--- NOTE | 2018-06-20 08:13 | UC ---
- Progress Note Progress Note: final read reviewed and normal. Course/Dx - Diagnoses Provider Diagnoses: Contusion of knee, left Discharge - Sign-Out/Discharge Documenting (check all that apply): Post-Discharge Follow Up All imaging exams completed and their final reports reviewed: Yes - Discharge Plan Condition: Good Disposition: HOME Patient Education Materials: Knee Pain (ED), Hypertension (ED) Referrals: Gigi Evans DO [Primary Care Provider] - 2 Days - Billing Disposition and Condition Condition: GOOD Disposition: Home
== END 2018-06-19 21:09 | disposition home or self-care (01) ==
LOC: UCCORT 19:44
DX: S80.02XA Contusion of left knee, initial encounter (principal); W22.8XXA Striking against or struck by other objects, initial encounter; Y92.9 Unspecified place or not applicable; R88.8 Abnormal findings in other body fluids and substances; F17.210 Nicotine dependence, cigarettes, uncomplicated
CPT/HCPCS: 99212; G0463

== ENCOUNTER 2018-11-03 19:08 | Emergency (ER) | payer OTHER ==
[2018-11-03 19:32] VITALS: BP 158/81
--- NOTE | 2018-11-03 20:24 | UC ---
UC General HPI - HPI Summary HPI Summary: 2 DAY HX RUNNY NOSE WITH COUGH AND CONGESTION. + WHEEZING. NO FEVER OR CP. HX ASTHMA - History of Current Complaint Chief Complaint: UCRespiratory Stated Complaint: COUGH/CONGESTION/FEVER Time Seen by Provider: 11/03/18 20:18 Hx Obtained From: Patient Onset/Duration: Gradual Onset Timing: Constant Pain Intensity: 0 Associated Signs & Symptoms: Positive: Cough, SOB, Wheezing. Negative: Chest Pain, Fever - Allergy/Home Medications Allergies/Adverse Reactions: Allergies Allergy/AdvReac Type Severity Reaction Status Date / Time mupirocin [From Bactroban] Allergy Rash Verified 11/03/18 19:30 BEES Allergy Rash Uncoded 11/03/18 19:30 PMH/Surg Hx/FS Hx/Imm Hx Respiratory History: Asthma - Surgical History Surgical History: Yes Surgery Procedure, Year, and Place: TONSILS. GALLBLADDER - Family History Known Family History: Positive: Cardiac Disease - FATHER, Hypertension, Diabetes - Social History Alcohol Use: None Substance Use Type: None Smoking Status (MU): Light Every Day Tobacco Smoker Type: Cigarettes Amount Used/How Often: 5 CIG/DAY Length of Time of Smoking/Using Tobacco: 2002 Have You Smoked in the Last Year: Yes Household Exposure Type: Cigarettes - Immunization History Vaccination Up to Date: Yes Review of Systems All Other Systems Reviewed And Are Negative: Yes Constitutional: Negative: Fever ENT: Positive: Sinus Congestion Respiratory: Positive: Shortness Of Breath, Cough Cardiovascular: Negative: Palpitations, Chest Pain Physical Exam Triage Information Reviewed: Yes Appearance: Well-Appearing Vital Signs: Initial Vital Signs Temp 97.8 F 11/03/18 19:28 Pulse 92 11/03/18 19:28 Resp 24 11/03/18 19:28 BP 158/81 11/03/18 19:28 Pulse Ox 100 11/03/18 19:28 Vital Signs Reviewed: Yes Eyes: Positive: Conjunctiva Clear ENT: Positive: Pharynx normal, Nasal congestion, TMs normal. Negative: Nasal drainage, Sinus tenderness Neck: Positive: Supple, Nontender, No Lymphadenopathy Respiratory: Positive: No respiratory distress, Decreased breath sounds, Other: - BRONCHOSPASTIC COUGH Cardiovascular: Positive: RRR, No Murmur Abdomen Description: Positive: Nontender, No Organomegaly, Soft Bowel Sounds: Positive: Present Musculoskeletal: Positive: ROM Intact Neurological: Positive: Alert Psychological: Positive: Age Appropriate Behavior Skin Exam: Normal Course/Dx - Diagnoses Provider Diagnosis: URI (upper respiratory infection), Asthma Discharge - Sign-Out/Discharge Documenting (check all that apply): Patient Departure All imaging exams completed and their final reports reviewed: No Studies - Discharge Plan Condition: Stable Disposition: HOME Prescriptions: predniSONE [Prednisone 20 MG TAB] 40 mg PO DAILY 5 Days #10 tablet Patient Education Materials: Asthma (DC), Upper Respiratory Infection (DC) Referrals: MYLA Howard [, APPLICATION, OTHER] - 5 Days Additional Instructions: USE YOUR RESCUE INHALER OR NEBULIZER EVERY 6 HOURS. - Billing Disposition and Condition Condition: STABLE Disposition: Home - Attestation Statements Provider Attestation: Per institutional requirements, I have reviewed the chart, however, I was not consulted specifically or made aware of this patient by the midlevel provider. I did not personally evaluate, interact with , or disposition this patient.
== END 2018-11-03 20:30 | disposition home or self-care (01) ==
LOC: UCCORT 19:08
DX: J06.9 Acute upper respiratory infection, unspecified (principal); J45.909 Unspecified asthma, uncomplicated; F17.210 Nicotine dependence, cigarettes, uncomplicated; Z88.1 Allergy status to other antibiotic agents; Z91.030 Bee allergy status
CPT/HCPCS: 99212; G0463